=== PATIENT | male | born 1935 | race Caucasian/White ===

== ENCOUNTER 2017-01-10 21:05 | Inpatient (IN) | payer MEDICARE ==
[~2017-01-10] VITALS: Ht 172.7 cm; Wt 67.3 kg
[2017-01-10] MEDS ORDERED: ARICEPT10 M1 PO (21:13)
[2017-01-10] MEDS ORDERED: ABILIFY20 MG PO (21:13)
[2017-01-10] MEDS ORDERED: LIPITOR40 MG PO (21:14)
[2017-01-10] MEDS ORDERED: MULTI VITAMINS1 TAB PO (21:15)
[2017-01-10] MEDS ORDERED: VITAMIN D1000 IU PO (21:16)
[2017-01-11 02:19] LABS: BILIRUBIN NEGATIVE (NEGATIVE); BLOOD NEGATIVE (NEGATIVE); CLARITY CLEAR (CLEAR); COLOR YELLOW (YELLOW); GLUCOSE NEGATIVE (NEGATIVE); KETONE NEGATIVE (NEGATIVE); LEUKO ESTERASE NEGATIVE (NEGATIVE); NITRITE POSITIVE (NEGATIVE); PH 6.5 (5.0-9.0); PROTEIN NEGATIVE (NEGATIVE); SPECIFIC GRAVITY <= 1.005 (1.005-1.030)
[2017-01-11 02:52] LABS: BACTERIA TRACE; URINE REFLEX COMMENT YES (NO)
[2017-01-11 06:39] LABS: BASO % 0.1 % (0.0-1.0); EOS # 0.1 10*3/uL (0.0-0.4); EOS % 1.6 % (1.0-4.0); HEMATOCRIT 39.6 % (42.0-52.0); HEMOGLOBIN 13.7 g/dl (14.0-18.0); LYMPH # 0.9 10*3/uL (1.3-4.4); LYMPH % 12.6 % (27.0-41.0); MEAN CELL VOLUME 103.4 fl (80.0-94.0); MEAN CORPUSCULAR HGB 35.8 pg (27.0-31.0); MEAN CORPUSCULAR HGB CONC 34.6 g/dl (33.0-37.0); MEAN PLATELET VOLUME 9.6 fl (9.6-12.3); MONO # 0.7 10*3/uL (0.1-1.0); MONO % 10.7 % (3.0-9.0); NEUT # 5.1 10*3/uL (2.3-7.9); NEUT % 74.9 % (47.0-73.0); PLATELET COUNT AUTOMATED 176 10*3/uL (130-400); RED BLOOD COUNT 3.83 10*6/uL (4.50-5.90); RED CELL DISTRI WIDTH 13.2 % (0-14.5); WHITE BLOOD COUNT 6.8 10*3/uL (4.8-10.8)
[2017-01-11 07:19] LABS: ALBUMIN 3.4 gm/dl (3.1-4.5); BILIRUBIN, TOTAL 0.6 mg/dl (0.2-1.0); BUN 20 mg/dl (7-24); CARBON DIOXIDE 28 mmol/L (21-32); CHLORIDE 106 mmol/L (98-107); CHOLESTEROL 149 mg/dL (<200); EST GLOM FILT AFRICAN AMERICAN > 60 ml/min; GLUCOSE 104 mg/dL (65-99); POTASSIUM 3.9 mmol/L (3.5-5.1); SGOT/AST 17 IU/L (3-35); SGPT/ALT 22 U/L (12-78); SODIUM 145 mmol/L (136-145); TOTAL PROTEIN 6.7 gm/dL (6.4-8.2); TRIGLYCERIDES 62 mg/dl (<150); VLDL CHOLESTEROL 12 mg/dL (6-40)
[2017-01-11 07:27] LABS: ALKALINE PHOSPHATASE 76 U/L (45-117); HDL CHOLESTEROL 60 mg/dl (40-60); LDL CHOLESTEROL 77 mg/dL (9-159)
[2017-01-11 07:31] LABS: HEMOGLOBIN A1c 6.1 % (4.8-5.6)
[2017-01-11 07:43] LABS: VITAMIN D, 25-HYDROXY 35.5 ng/mL (30-100)
[2017-01-11 07:46] VITALS: BP 137/71
[2017-01-11 19:48] VITALS: BP 129/60
[2017-01-12 07:24] VITALS: BP 151/72
[2017-01-12 20:42] VITALS: BP 125/70
[2017-01-13 08:13] VITALS: BP 128/60
[2017-01-13 21:46] VITALS: BP 112/51
[2017-01-14 07:58] VITALS: BP 116/55
[2017-01-14 19:59] VITALS: BP 108/60
[2017-01-15 07:54] VITALS: BP 116/52
[2017-01-15 19:55] VITALS: BP 116/52
[2017-01-16 07:42] VITALS: BP 137/74
[2017-01-16 19:47] VITALS: BP 121/60
[2017-01-17 08:01] VITALS: BP 144/70
[2017-01-17 19:46] VITALS: BP 149/71
[2017-01-18 07:45] VITALS: BP 125/55
[2017-01-18 20:01] VITALS: BP 130/80
[2017-01-19 07:46] VITALS: BP 122/60
[2017-01-19] MEDS ORDERED: MEMANTINE HCL10 MG PO ×2 (08:22)
[2017-01-19] MEDS ORDERED: TRAZODONE150 MG PO (08:22)
[2017-01-19] MEDS ORDERED: DIVALPROEX SOD125 M1 PO (08:22)
[2017-01-19] MEDS ORDERED: D-1000 185 MG-11 TAB PO (08:22)
[2017-01-19] MEDS ORDERED: EXELON13.3 MG/21 T (08:22)
[2017-01-19] MEDS ORDERED: LORAZEPAM1 MG PO (08:22)
== END 2017-01-19 13:09 | disposition other institution (70) | DRG 57 ==
LOC: 3N 21:05
PROVIDERS: Psychiatry & Neurology Psychiatry
DX: G30.8 Other Alzheimer's disease (principal); F02.81 Dementia in other diseases classified elsewhere, unspecified severity, with behavioral disturbance; N39.0 Urinary tract infection, site not specified; F23 Brief psychotic disorder; E55.9 Vitamin D deficiency, unspecified; E78.00 Pure hypercholesterolemia, unspecified; K40.90 Unilateral inguinal hernia, without obstruction or gangrene, not specified as recurrent; F41.9 Anxiety disorder, unspecified; Z87.891 Personal history of nicotine dependence; Z80.42 Family history of malignant neoplasm of prostate; Z82.49 Family history of ischemic heart disease and other diseases of the circulatory system; Z88.8 Allergy status to other drugs, medicaments and biological substances; Z79.899 Other long term (current) drug therapy